=== PATIENT | female | born 1970 | race Hispanic/Latino ===

== ENCOUNTER 2023-11-12 04:49 | Emergency (ER) | payer BC ==
[~2023-11-12] VITALS: Ht 408.9 cm; Wt 76.7 kg
[2023-11-12 05:05] VITALS: TEMP 98.7
[2023-11-12] MEDS ORDERED: BACI30OI10 TP (06:11)
[2023-11-12 07:06] VITALS: BP 168/94; PULSE 90; RESP 18; O2SAT 98
== END 2023-11-12 07:12 | disposition home or self-care (01) ==
LOC: EDH 04:49
DX: S80.212A Abrasion, left knee, initial encounter (principal); S80.211A Abrasion, right knee, initial encounter; M79.645 Pain in left finger(s); M79.642 Pain in left hand; I10 Essential (primary) hypertension; W01.0XXA Fall on same level from slipping, tripping and stumbling without subsequent striking against object, initial encounter; Y93.89 Activity, other specified; Y92.89 Other specified places as the place of occurrence of the external cause; Y99.8 Other external cause status
CPT/HCPCS: 73130; 73564